=== PATIENT | female | born 1940 | race Caucasian/White ===

== ENCOUNTER → 2016-12-17 | Outpatient (CLI) | payer OTHER ==
[2016-12-17 13:05] LABS: BASOPHILS # (AUTO) 0.04 10*3/UL; BASOPHILS % (AUTO) 0.5 % (0-1); EOSINOPHILS % (AUTO) 1.3 % (0-8); HEMOGLOBIN 14.3 g/dL (12.0-16.0); IMM GRAN % (AUTO) 0.1 % (0-5); IMM GRAN# (AUTO) 0.01 10*3/UL; LYMPHOCYTES # (AUTO) 1.57 10*3/uL; MEAN CORPUSCULAR HEMOGLOBIN 27.7 PG (27-31); MEAN CORPUSCULAR HGB CONC 34.9 g/dL (33-37); MEAN PLATELET VOLUME 9.2 FL (7.4-12.2); MONOCYTES # (AUTO) 0.61 10*3/UL (0.3-0.8); NEUTROPHILS # (AUTO) 6.38 10*3/UL; NEUTROPHILS % (AUTO) 73.1 % (50-80); RDW COEFFICIENT OF VARIATION 14.1 % (11.5-14.5); RED BLOOD COUNT 5.17 10^6/uL (4.20-5.40); WHITE BLOOD COUNT 8.72 10^3/uL (4.8-10.8)
[2016-12-17 13:12] LABS: PLATELET MORPHOLOGY COMMENT NORMAL MORPHOLOGY (NORM)
[2016-12-17 13:15] LABS: BILIRUBIN,TOTAL 0.6 mg/dL (0.3-1.2); BUN/CREATININE RATIO 24.28 (6-20); CREATININE 0.7 mg/dL (0.50-1.20); LDL CHOLESTEROL,CALCULATED 47.6 mg/dL; TOTAL PROTEIN 7.7 g/dL (6.1-8.0)
[2016-12-17 13:38] LABS: BILIRUBIN,URINE NEGATIVE (NEG); CLARITY,URINE CLEAR (CLEAR); GLUCOSE, URINE (UA) NEGATIVE (NEG); LEUKOCYTE ESTERASE ,URINE SMALL (NEG); NITRATE,URINE NEGATIVE (NEG); OCCULT BLOOD,URINE Trace-intact (NEG); PROTEIN,URINE NEGATIVE (NEG); UROBILINOGEN,URINE 0.2 mg/dL (0.2)
[2016-12-17 13:40] LABS: URINE SAMPLE TYPE CLEAN CATCH URINE
--- NOTE | 2016-12-17 14:00 | DI ---
PA /LATERAL CHEST X-RAY, 12/17/2016 12:57 PM : Clinical History: Wheezes. Previous Exam: None at this facility. There is no acute soft tissue or bony abnormality. Heart size is normal. Lungs are clear. Mediastinal structures are normal. There are no pulmonary nodules. Reading: Normal chest x-ray.
[2016-12-17 15:37] LABS: BACTERIA,URINE FEW; RBC,URINE 0 /hpf; SQUAMOUS EPITHELIAL CELL,UR RARE
== END ==
LOC: LAB 12:49
PROVIDERS: ATTEND Internal Medicine
DX: I10 Essential (primary) hypertension (principal); E78.5 Hyperlipidemia, unspecified; R06.2 Wheezing; E66.9 Obesity, unspecified
CPT/HCPCS: 36415; 71020; 80053; 80061; 81001; 84443; 85025

== ENCOUNTER → 2017-02-11 | Outpatient (CLI) | payer OTHER ==
[2017-02-11 11:49] LABS: BASOPHILS # (AUTO) 0.05 10*3/UL; BASOPHILS % (AUTO) 0.5 % (0-1); EOSINOPHILS % (AUTO) 0.9 % (0-8); HEMATOCRIT 41.4 % (37.0-47.0); HEMOGLOBIN 14.1 g/dL (12.0-16.0); LYMPHOCYTES # (AUTO) 1.87 10*3/uL; MEAN CORPUSCULAR HEMOGLOBIN 27.2 PG (27-31); MEAN CORPUSCULAR HGB CONC 34.1 g/dL (33-37); MEAN PLATELET VOLUME 9.9 FL (7.4-12.2); MONOCYTES # (AUTO) 0.67 10*3/UL (0.3-0.8); MONOCYTES % (AUTO) 6.2 % (5-15); NEUTROPHILS # (AUTO) 8.13 10*3/UL; NEUTROPHILS % (AUTO) 74.9 % (50-80); RED BLOOD COUNT 5.18 10^6/uL (4.20-5.40)
[2017-02-11 11:51] LABS: PLATELET MORPHOLOGY COMMENT NORMAL MORPHOLOGY (NORM); RBC MORPHOLOGY COMMENT NORMAL MORPHOLOGY (NORM); WBC MORPHOLOGY COMMENT NORMAL MORPHOLOGY (NORM)
== END ==
LOC: MOB LAB 10:31
PROVIDERS: ATTEND Internal Medicine
DX: R71.8 Other abnormality of red blood cells (principal); I10 Essential (primary) hypertension; R41.3 Other amnesia
CPT/HCPCS: 36415; 82728; 85025; 85652

== ENCOUNTER → 2017-05-19 | Outpatient (CLI) | payer OTHER | LOC: MMPC 11:11 | PROVIDERS: ATTEND Internal Medicine | DX: I10 Essential (primary) hypertension (principal); I38 Endocarditis, valve unspecified; H91.13 Presbycusis, bilateral; E78.5 Hyperlipidemia, unspecified; E66.9 Obesity, unspecified | CPT/HCPCS: 99213; G0463 ==